=== PATIENT | male | born 1970 | race Caucasian/White ===

== ENCOUNTER 2016-07-07 07:24 | Day surgery (SDC) | payer BC ==
[~2016-07-07 07:24] MED LIST: Lactated Ringers 1,000 ML IV SCH; Lidocaine 1%/Sod Bicarbonate in NS 8.4% 1 ML Syringe IV PRN; Sodium Chloride 0.9% 10 ML Syringe FLUSH PRN
--- NOTE | 2016-07-07 07:45 | PCM.PREANE ---
Preanesthetic Assessment - Procedure Proposed Procedure: EGD and colonoscopy - Anesthesia/Transfusion/Family Hx Anesthesia History: Prior Anesthesia Without Reaction Family History of Anesthesia Reaction: No Transfusion History: No Prior Transfusion(s) Intubation History: Unknown - Review of Systems General: No Symptoms Pulmonary: No Symptoms Cardiovascular: No Symptoms Gastrointestinal: No symptoms Neurological: No Symptoms Other: Reports: None - Physical Assessment NPO Status Date: 07/06/16 NPO Status Time: 22:00 Pulse: 55 O2 Sat by Pulse Oximetry: 99 Respiratory Rate: 16 Blood Pressure: 129/76 Temperature: 36.4 C Height: 1.8 m ASA Class: 2 Mental Status: Alert & Oriented x3 Airway Class: Mallampati = 2 Dentition: Reports: Normal Dentition Thyro-Mental Finger Breadths: 2 Mouth Opening Finger Breadths: 4 ROM/Head Extension: Full Lungs: Clear to auscultation, Normal respiratory effort Cardiovascular: Regular Rhythm, Bradycardia - Allergies Allergies/Adverse Reactions: Allergies Allergy/AdvReac Type Severity Reaction Status Date / Time amoxicillin Allergy Diarrhea Verified 06/08/16 10:25 - Blood Blood Available: No - Anesthesia Plan Pre-Op Medication Ordered: None - Acknowledgements Anesthesia Type Planned: MAC Pt an Appropriate Candidate for the Planned Anesthesia: Yes Alternatives and Risks of Anesthesia Discussed w Pt/Guardian: Yes Pt/Guardian Understands and Agrees with Anesthesia Plan: Yes PreAnesthesia Questionnaire Gastrointestinal History: Reports: Other (see below) Other Gastrointestinal History: dysphagia, esophageal stricture Musculoskeletal History: Reports: Gout - Past Surgical History HEENT Surgical History: Reports: Oral surgery, Other (see below) Other HEENT Surgeries/Procedures: wisdom teeth GI Surgical History: Reports: Hernia, inguinal - SUBSTANCE USE Smoking Status *Q: Never Smoker Tobacco Use Within Last Twelve Months: Snuff/Dip (everyday) Number of Drinks Per Day: 6 Recreational Drug Use History: No - HOME MEDS Home Medications: Home Meds Multivitamin [Multivitamins] 1 cap PO DAILY 07/06/16 [History] - CURRENT (IN HOUSE) MEDS Current Meds: Current Medications Lactated Ringer's (Ringers, Lactated) 1,000 mls @ 125 mls/hr IV ASDIRECTED OLIVE Stop: 07/07/16 23:00 Lidocaine/Sodium Bicarbonate (Buffered Lidocaine 1% In Ns 8.4%) 0.25 ml IV ONETIME PRN PRN Reason: Prior to IV Start Stop: 07/07/16 18:00 Sodium Chloride (Saline Flush) 10 ml FLUSH ASDIRECTED PRN PRN Reason: Keep Vein Open Stop: 07/07/16 18:00
[2016-07-07] MEDS ORDERED: Propofol 200 MG/20 ML SDV ONE ×3 (08:57→09:46)
[2016-07-07] MEDS ORDERED: Lidocaine 1% 4 ML ONE (08:58)
[2016-07-07] MEDS ORDERED: Midazolam 1 MG/ML 2 ML SDV ONE (09:00)
[2016-07-07 10:00] VITALS: BP 114/76
--- NOTE | 2016-07-07 10:02 | PCM.OPNOTE ---
- General Post-Op/Procedure Note Date of Surgery/Procedure: 07/07/16 Operative Procedure(s): 1. EGD with GE junction biopsy x2 using cold forceps. 2. Colonoscopy hot snare polypectomy Findings: 1. linear distal esophageal ulcer approximately 2 cm in length, and GE junction stricture 2. sigmoid polyp Pre Op Diagnosis: 1. Esophageal Dysphagia. 2. Personal and family history of multiple colon polyps, associated with changes in his bowel habits. Bright red blood per rectum. Post-Op Diagnosis: 1. GERD complicated by reflux stricture, and single superficial linear ulceration. 2. Diminutive sigmoid polyp Anesthesia Technique: MAC, Moderate sedation Primary Surgeon: Rufino Young Pathology: 1. stricture biopsies x2 2. sigmoid polyp EBL in mLs: 0 Complications: None Condition: Good Free Text/Narrative:: After adequate IV sedation and analgesia was obtained the patient was placed on his left side. Through a bite block a lubricated upper endoscope was inserted into the esophagus without difficulty. The scope was passed towards the GE junction, in which I found a 2 cm superficial linear ulcer and a GE junction stricture. The stricture was tight and did not allow passage of the scope despite firm pressure. Because of this I was about to abort the distal exam into the stomach and duodenum. I took 2 biopsies of the stricture at opposite sides of each other and this allowed the scope to pass into the stomach. The pylorus was entered to the second, and third parts of the duodenum. These areas were endoscopically normal with no inflammatory changes seen. The antrum and body of the stomach likewise were unremarkable. In the retroflexed view the fundus was normal as well. There was no hiatal hernia. However, the stricture could be seen from below. The rugal folds are grossly normal. The scope was withdrawn back to the GE junction and I photographed the superficial linear ulcer. There was no endoscopic Perdomo's change. The body of the esophagus was otherwise unremarkable. Health Care Legal Assistant photographs were taken for the patient's record. Perianal inspection and digital rectal examination were performed and were unremarkable. The prostate was grossly normal. A lubricated colonoscope was inserted into the rectum then advanced under direct vision with air insufflation as necessary to the cecum. The bowel preparation was excellent. The cecum, right colon, transverse, and descending colons were endoscopically normal with no mass lesions or inflammatory changes seen. Within the distal sigmoid there was an 8 mm polyp which was removed with hot snare. The rectum was unremarkable in both views. Air was removed as I finished the procedure which he tolerated well. Health Care Legal Assistant photographs were taken for the record and for the patient.
--- NOTE | 2016-07-07 10:09 | PCM48HPAN ---
Post Anesthesia Note - EVALUATION WITHIN 48HRS OF ANESTHETIC Vital Signs in Normal Range: Yes Patient Participated in Evaluation: Yes Respiratory Function Stable: Yes Airway Patent: Yes Cardiovascular Function Stable: Yes Hydration Status Stable: Yes Pain Control Satisfactory: Yes Nausea and Vomiting Control Satisfactory: Yes Mental Status Recovered: Yes
== END 2016-07-07 10:27 | disposition home or self-care (01) ==
LOC: JD.SDS 07:24
PROVIDERS: ATTEND Surgery
PROC: 0DBN8ZX Excision of Sigmoid Colon, Via Natural or Artificial Opening Endoscopic, Diagnostic (ICD-10-PCS; principal; 2016-07-07)
PROC: 0DB48ZX Excision of Esophagogastric Junction, Via Natural or Artificial Opening Endoscopic, Diagnostic (ICD-10-PCS; 2016-07-07)
DX: D12.5 Benign neoplasm of sigmoid colon (principal); R19.4 Change in bowel habit; K62.5 Hemorrhage of anus and rectum; Z87.19 Personal history of other diseases of the digestive system; Z83.71 Family history of colonic polyps; K21.0 Gastro-esophageal reflux disease with esophagitis; K22.10 Ulcer of esophagus without bleeding; K22.2 Esophageal obstruction; M10.9 Gout, unspecified; Z88.1 Allergy status to other antibiotic agents
CPT/HCPCS: 43239; 45385; 88305; J2250; J7120; 00810; J2704

== ENCOUNTER 2017-04-29 00:49 | Emergency (ER) | payer BC ==
[2017-04-29 01:09] VITALS: BP 169/109
--- NOTE | 2017-04-29 03:14 | EDM.PDOC ---
ED HPI GENERAL MEDICAL PROBLEM - General Chief Complaint: Lower Extremity Injury/Pain Stated Complaint: SHARP PAIN INNER LEFT THIGH Time Seen by Provider: 04/29/17 01:37 Source of Information: Reports: Patient History Limitations: Reports: No Limitations - History of Present Illness INITIAL COMMENTS - FREE TEXT/NARRATIVE: The patient states that he developed fleeting sharp pain in his upper medial left thigh around 23:15. It lasted only about 15 seconds, but has recurred twice since. The patient has not identified any modifiers that will either produce or relieve the symptoms. He denies any recent injury to his left lower extremity. No prior similar symptoms. The patient has not tried any home remedies. The patient's PCP is Chloe Rodriguez. Left Upper Mid-Anterior Leg Pain Score (Numeric/FACES): 10 - Related Data Allergies Allergy/AdvReac Type Severity Reaction Status Date / Time amoxicillin Allergy Diarrhea Verified 07/07/16 08:00 Home Meds: Home Meds Multivitamin [Multivitamins] 1 cap PO DAILY 07/06/16 [History] Allopurinol [Zyloprim] 200 mg PO DAILY 04/29/17 [History] Omeprazole 20 mg PO DAILY 04/29/17 [History] Past Medical History Cardiovascular History: Reports: Other (See Below) (Elevated triglycerides, untreated) Gastrointestinal History: Reports: GERD (With esophageal stricture) Musculoskeletal History: Reports: Gout (suspected, not confirmed) - Past Surgical History HEENT Surgical History: Reports: Oral Surgery ([place] teeth extraction) GI Surgical History: Reports: Hernia, Inguinal (left) Social & Family History - Tobacco Use Smoking Status *Q: Never Smoker Tobacco Use Within Last Twelve Months: Smokeless Tobacco (Chews 1/3 tin per day) Second Hand Smoke Exposure: No - Caffeine Use Caffeine Use: Reports: None - Alcohol Use Alcohol Use History: Yes Alcohol Use Frequency: Socially - Recreational Drug Use Recreational Drug Use: No - Living Situation & Occupation Living situation: Reports: , with Spouse 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 ED EXAM, GENERAL - Physical Exam Exam: See Below Exam Limited By: No Limitations General Appearance: Alert, WD/WN, No Apparent Distress Extremities: Other (No visible abnormality to the upper medial thigh, such as swelling, erythema, ecchymosis, or abrasion. The patient is able to identify the site where he had pain earlier, but he states that the area is nontender to palpation at this time. Neurovascular status of the left lower extremity is intact.) Course - Vital Signs Last Recorded V/S: Last Vital Signs Temp 36.3 C 04/29/17 01:06 Pulse 79 04/29/17 01:06 Resp 18 04/29/17 01:06 BP 169/109 H 04/29/17 01:06 Pulse Ox 99 04/29/17 01:06 - Orders/Labs/Meds Labs: Laboratory Tests 04/29/17 Range/Units 02:05 D-Dimer, Quantitative < 0.19 L (0.19-0.59) mg/L - Re-Assessments/Exams Free Text/Narrative Re-Assessment/Exam: 04/29/17 03:10 Test results discussed with the patient. His D-dimer is undetectably low, which essentially rules out a DVT. I do not know the cause of the patient's pain, but it does not appear to be anything serious. I am recommending that he follow up with his PCP if his symptoms persist. Departure - Departure Time of Disposition: 03:11 Disposition: Home, Self-Care 01 Condition: Good Clinical Impression: Pain of left lower extremity - Discharge Information Referrals: Chloe Rodriguez, SAIL REPAIR PERSON [Primary Care Provider] - Forms: ED Department Discharge Additional Instructions: You were seen in the emergency room for sharp intermittent pain in your upper inner left thigh. Workup in the ER included a D-dimer (a test for a blood clot), which returned negative. The cause of your pain is unclear, but it does not appear to be due to something serious. If your symptoms persist, please follow-up with your PCP, Chloe Rodriguez. If any other problems, please do not hesitate to return to the ER.
== END 2017-04-29 03:23 | disposition home or self-care (01) ==
LOC: JD.ED 00:49
DX: M79.652 Pain in left thigh (principal); Z88.1 Allergy status to other antibiotic agents; Z79.899 Other long term (current) drug therapy
CPT/HCPCS: 36415; 85379; 99283

== ENCOUNTER 2022-10-14 09:25 | Day surgery (SDC) | payer BC ==
[~2022-10-14 09:25] MED LIST changes: -Lactated Ringers 1,000 ML IV SCH; -Lidocaine 1%/Sod Bicarbonate in NS 8.4% 1 ML Syringe IV PRN; +Sodium Chloride 0.9% 10 ML Syringe FLUSH SCH
[2022-10-14] MEDS: Lactated Ringers 1,000 ML IV SCH ×2 (09:45→11:15)
[2022-10-14] MEDS ORDERED: Propofol 200 MG/20 ML SDV ONE ×2 (10:05→10:39)
[2022-10-14] MEDS ORDERED: fentaNYL 100 MCG/2 ML SDV ONE (10:06)
[2022-10-14] MEDS ORDERED: Lidocaine 1% 6 ML ONE (10:11)
[2022-10-14 12:18] VITALS: BP 108/72; PULSE 50
== END 2022-10-14 12:08 | disposition home or self-care (01) ==
LOC: JD.SDS 09:25
PROVIDERS: ATTEND Specialist
DX: Z12.11 Encounter for screening for malignant neoplasm of colon (principal); D12.5 Benign neoplasm of sigmoid colon; K31.7 Polyp of stomach and duodenum; K22.81 Esophageal polyp; K22.2 Esophageal obstruction; K21.9 Gastro-esophageal reflux disease without esophagitis; K44.9 Diaphragmatic hernia without obstruction or gangrene; K57.30 Diverticulosis of large intestine without perforation or abscess without bleeding; M10.9 Gout, unspecified; E78.1 Pure hyperglyceridemia; Z88.0 Allergy status to penicillin; Z79.899 Other long term (current) drug therapy; Z72.0 Tobacco use
CPT/HCPCS: 43239; 43251; 45385; J2704; J3010; J7120; 00813; J3490